=== PATIENT | female | born 1950 | race Caucasian/White ===

== ENCOUNTER 2017-07-07 10:20 | Emergency (ER) | payer OTHER ==
[~2017-07-07] VITALS: Ht 167.6 cm; Wt 93.0 kg
[2017-07-07] MEDS ORDERED: TRAMADOL HCL50 MG PO (10:41)
[2017-07-07] MEDS ORDERED: HYDROXYZINE HCL25 M1 PO (10:42)
[2017-07-07] MEDS ORDERED: METOPROLOL TAR100 M1 PO (10:42)
[2017-07-07] MEDS ORDERED: METFORMIN HCL500 MG PO (10:42)
[2017-07-07] MEDS ORDERED: ROSUVASTATIN CA10 MG PO (10:43)
[2017-07-07] MEDS ORDERED: CITALOPRAM HYDR40 MG PO (10:43)
[2017-07-07 10:53] LABS: BASO % 0.5 % (0.0-1.0); EOS # 0.1 10*3/uL (0.0-0.4); EOS % 0.7 % (1.0-4.0); HEMATOCRIT 31.1 % (37.0-47.0); LYMPH # 1.7 10*3/uL (1.3-4.4); LYMPH % 19.2 % (27.0-41.0); MEAN CELL VOLUME 98.7 fl (81.0-99.0); MEAN CORPUSCULAR HGB 31.7 pg (27.0-31.0); MEAN CORPUSCULAR HGB CONC 32.2 g/dl (33.0-37.0); MEAN PLATELET VOLUME 10.7 fl (9.6-12.3); MONO # 0.5 10*3/uL (0.1-1.0); MONO % 5.8 % (3.0-9.0); NEUT # 6.4 10*3/uL (2.3-7.9); NEUT % 73.6 % (47.0-73.0); PLATELET COUNT AUTOMATED 310 10*3/uL (130-400); RED BLOOD COUNT 3.15 10*6/uL (4.10-5.10); RED CELL DISTRI WIDTH 14.4 % (0-14.5); WHITE BLOOD COUNT 8.6 10*3/uL (4.8-10.8)
[2017-07-07 11:02] LABS: ACT PARTIAL THROMBO TIME 26.4 SECONDS (20.8-31.5)
[2017-07-07 11:06] LABS: ALBUMIN 2.5 gm/dl (3.1-4.5); ALKALINE PHOSPHATASE 110 U/L (45-117); BUN 8 mg/dl (7-24); CHLORIDE 108 mmol/L (98-107); CREATININE 1.02 mg/dL (0.55-1.02); LIPASE 81 U/L (73-393); SGOT/AST 18 IU/L (3-35); SGPT/ALT 18 U/L (12-78); SODIUM 142 mmol/L (136-145); TOTAL PROTEIN 6.6 gm/dL (6.4-8.2)
[2017-07-07 11:50] LABS: BILIRUBIN NEGATIVE (NEGATIVE); BLOOD NEGATIVE (NEGATIVE); CLARITY CLOUDY (CLEAR); COLOR YELLOW (YELLOW); GLUCOSE NEGATIVE (NEGATIVE); KETONE TRACE (NEGATIVE); LEUKO ESTERASE TRACE (NEGATIVE); NITRITE NEGATIVE (NEGATIVE); PH 6.5 (5.0-9.0)
[2017-07-07 12:01] LABS: BACTERIA 3+; EPITHELIAL CELLS 15-20; MUCOUS 2+
== END 2017-07-07 12:25 | disposition home or self-care (01) ==
LOC: ED 10:20
PROVIDERS: Emergency Medicine
DX: R07.89 Other chest pain (principal); G89.29 Other chronic pain; F17.200 Nicotine dependence, unspecified, uncomplicated; Z79.899 Other long term (current) drug therapy

== ENCOUNTER 2018-07-19 05:46 | Inpatient (IN) | payer MEDICARE, OTHER ==
[~2018-07-19] VITALS: Ht 167.6 cm; Wt 84.6 kg
[2018-07-19] VITALS (7 sets, daily range): BP systolic 98–138; BP diastolic 48–93
--- NOTE | ~2018-07-19 | EKG ---
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
--- NOTE | ~2018-07-19 | PR ---
[place], [place] PROGRESS NOTE NAME: DONNA PINO [facility] #: [id number] UNIT #: [id number] ROOM: 512 DOCTOR: BAIRON THEODORE MD BIRTHDATE: [birth year] DOS: 07/20/2018 CARDIOLOGY PROGRESS NOTE SUBJECTIVE: The patient was seen at her bedside today 07/20/2018 for followup of her recently documented atrial fibrillation. She is a 67-year-old woman who presented to the hospital after a fall. She states that she left work, had a few drinks and then went home. As she was preparing dinner, she felt unsteady and as she tried to walk to her living room, she fell. She denies syncope, but stated that she was quite weak before she fell. She is able to crawl to herself and then called emergency medical services the next morning when her legs still hurt. She states that the only thing that she really cares about now is the fact that her leg is very painful. She cannot get any rest. When she did arrive in the Emergency Room, she was found to be in atrial fibrillation, but subsequently converted to sinus rhythm. We were asked to comment on her further evaluation and care. On exam today, her pulse is 66 and regular, blood pressure is 152/70. She is afebrile. She was angry when we walked into the room and not receptive to physical examination. I did review her echocardiogram, which showed normal left ventricular size with mild concentric left ventricular hypertrophy. Systolic function is normal with an ejection fraction of 65%, but she does have stage 2 diastolic dysfunction. She has left atrial enlargement, which appears mild. She does not have any significant valvular disease. I did speak to her at some length about the effects of atrial fibrillation including lightheadedness, weakness and stroke. The patient states that there is a lot of heart disease in her family and that she is not afraid of dying, but was concerned when I told her that more likely than not she would have a stroke from the atrial fibrillation and that would cripple her. At that point, she did agree to discuss anticoagulation and has agreed to take Xarelto upon discharge. She states that her mother was on Coumadin for some time and is familiar with anticoagulation therapies. The patient denies chest pain, but did have an elevated troponin upon admission. Because of this, she probably should undergo a pharmacologic stress test at some time in the near future, but this can wait until after she has been discharged. IMPRESSION: 1. Newly documented atrial fibrillation. 2. Hypertension. 3. Diabetes. 4. Tobacco abuse. PLAN: I would stop all nonsteroidal anti-inflammatory drugs and aspirin and placed her on Xarelto. As noted once she is stabilized and her pain has been relieved, a pharmacologic stress test would be an appropriate next step. [place], [place] PROGRESS NOTE NAME: DONNA PINO UNIT #: [id number] ROOM: 512 DOCTOR: ARBEN ECHEVARRIA,BAIRON BIRTHDATE: [birth year] We thank the hospitalist physicians for asking our advice regarding her care. BAIRON THEODORE MD CM:PNTRANS 1705 BAIRON THEODORE MD 07/21/18224 interface
--- NOTE | ~2018-07-19 | PR ---
[place], [place] PROGRESS NOTE NAME: DONNA PINO [facility] #: [id number] UNIT #: [id number] ROOM: 512 DOCTOR: BAIRON THEODORE MD BIRTHDATE: [birth year] DOS: 07/27/2018 CARDIOLOGY PROGRESS NOTE SUBJECTIVE: The patient was seen at her bedside today 07/27/2018 for followup of paroxysmal atrial fibrillation. She continues to have right leg pain from a fall that she had prior to admission. The bruise got worse when she was started transiently on rivaroxaban. Rivaroxaban has been on hold and her blood counts have been stable since then. The night before last, she did have a recurrent episode of atrial fibrillation without symptoms that resolved spontaneously. PHYSICAL EXAMINATION: VITAL SIGNS: Today, her pulse is 52 and regular, blood pressure is 162/80. She is afebrile. NECK: Supple. She has no jugular distention. Carotids are full. LUNGS: Respirations are unlabored. Her chest is clear to auscultation and percussion. HEART: Has a regular rhythm. She has an S4 gallop. ABDOMEN: Benign. EXTREMITIES: Showed no edema. Echocardiogram done 07/20/2018 showed normal left ventricular size with wall motion and systolic function with ejection fraction 65%. She did have mild concentric left ventricular hypertrophy and stage 2 diastolic relaxation abnormalities. The right heart appeared normal. The left atrium was mildly dilated. The aortic valve leaflets were sclerotic, but opened well. LABORATORY DATA: Hemoglobin today is 9.2. Sodium 142, potassium 3.6, BUN 12, creatinine 0.72. IMPRESSION: 1. Paroxysmal atrial fibrillation. 2. Essential hypertension. 3. Diabetes. 4. Non-morbid obesity. 5. Fall prior to admission with right leg pain. The patient did have hemorrhaging into the contusion when started on rivaroxaban. PLAN: In the long-term, the patient should be on anticoagulation therapy. She has a CHADS-VASc score of 4, which predicts a high risk for cardioembolic events if she is not anticoagulated. I did spend 15-20 minutes with the patient today, explaining this again. When I first discussed this with her, she was very resistant to any consideration that she had a heart problem. At this time, she did listen to me and states that she will come back for followup. Because of her injury, she cannot be anticoagulated at this time, but she will need to be started on a direct oral anticoagulant in the future. I would like her to follow up with us in the office in about 2 weeks after which she can be started on Xarelto 20 mg daily. At the time of this dictation, her medications are diltiazem CD 120 mg daily, pantoprazole 40 mg daily, insulin a.c. and at bedtime by sliding scale, vitamin D 3000 units daily, thiamine 100 mg p.o. daily, [place], [place] PROGRESS NOTE NAME: DONNA PINO UNIT #: [id number] ROOM: 512 DOCTOR: BAIRON THEODORE MD BIRTHDATE: [birth year] multivitamin daily, metoprolol 100 mg b.i.d., folic acid 1 mg daily, citalopram 40 mg daily, Zofran 4 mg q. 6 hours p.r.n., Nicoderm patch and hydroxyzine 50 mg q.6 hours p.r.n. I thank the hospitalist physicians for asking our advice regarding her care. BAIRON THEODORE MD CM:PNTRANS [id number] BAIRON THEODORE MD 07/27/18 1145 interface
--- NOTE | ~2018-07-19 | EKG ---
[place], [place] ELECTROCARDIOGRAM REPORT NAME: DONNA PINO UNIT #: [id number] ROOM: 512 DOCTOR: HARSHA DRAFT REPORT BIRTHDATE: [birth year] [facility] Test Date: 2018-07-19 Test Time: 07:16:02 Pat Name: DONNA PINO Department: Room: 512 Gender: F Check Processor: : 1950 Requested By: ANU ECHOLS Order Number: [id number] Reading MD: Isabel Velazco MD Measurements Intervals [place] Rate: 154 P: SD: QRS: 12 QRSD: 99 T: 155 QT: 305 QTc: 488 Interpretive Statements Atrial flutter with predominant 2:1 AV block LVH with secondary repolarization abnormality Borderline prolonged QT interval No previous ECG available for comparison Electronically Signed On 07-21-2018 12:04:02 PST by Isabel Velazco MD CM:EKGRPT:ELECTROCARDIOGRAM REPORT [id number] 1204 ANU GOMES DRAFT REPORT ANU ECHOLS DO
--- NOTE | ~2018-07-19 | CON ---
[place], [place] REPORT OF CONSULTATION NAME: DONNA PINO UNIT #: [id number] ROOM: 512 DOCTOR: GILLIAN BEAVERS MD BIRTHDATE: [birth year] DOS: 07/19/2018 CARDIOLOGY CONSULTATION REASON FOR CONSULTATION: Atrial fibrillation. CLINICAL HISTORY: The patient is a 67-year-old patient with history of hypertension and diabetes, who presented to Emergency Room for leg pain and "shakiness." She had worked at ____ and then she had some drinks. After that, she noted to be feeling kind of shaky and apparently presented to the hospital because she got weak and also fell in her kitchen and injured her right hip. She denies any chest pain, palpitations. No nausea, vomiting. No bladder or bowel symptoms. No visual symptoms. No neurologic symptoms. REVIEW OF SYSTEMS: Review of the 10 systems negative except as mentioned above. PAST MEDICAL HISTORY: 1. Hypertension. 2. Diabetes. 3. Non-morbid obesity. 4. Acid reflux. PAST SURGICAL HISTORY: History of fundoplication and cataract surgery. ALLERGIES: THE PATIENT IS ALLERGIC TO GENERIC LISINOPRIL. FAMILY HISTORY: Father and mother , cause unknown. HOME MEDICATIONS: Reviewed. Pertinent cardiac medications include metoprolol. PHYSICAL EXAMINATION: VITAL SIGNS: Blood pressure 110/54, pulse 84, respiratory rate 20, weight 84.5 kilos, BMI 30.1. GENERAL: Alert, comfortable, in no acute distress. HEENT: Pupils are round and equal. No jaundice. Tongue was moist and pharynx clear. NECK: Supple, no distended neck veins, no carotid bruit. CHEST: Symmetrical, nontender. LUNGS: Clear to auscultation bilaterally. HEART: Regular rhythm, no S3. ABDOMEN: Obese, nontender. Bowel sounds normal. EXTREMITIES: Showed no edema. Distal pulses palpable. SKIN: Warm and dry. No cyanosis, no clubbing. RECTAL: Deferred. GENITOURINARY: Deferred. NEUROLOGIC: The patient is alert, oriented. No focal neurologic deficit. EKG, RHYTHM STRIPS, LABORATORIES AND IMAGING STUDIES: Reviewed. EKG showed atrial fibrillation and flutter with rapid ventricular rate. Hemoglobin 13 grams, WBC count 6.5 thousand, platelet are 230,000. Potassium 3.6. Normal [place], [place] REPORT OF CONSULTATION NAME: DONNA PINO UNIT #: [id number] ROOM: 512 DOCTOR: RUTHANN ECHEVARRIA,GILLIAN BIRTHDATE: [birth year] ____ function. Troponins are 0.015, 0.18, 0.059. CURRENT MEDICATIONS: Reviewed. IMPRESSION: 1. Atrial fibrillation with rapid ventricular rate, new onset, CHADS2-VASc score of 4. 2. Hypertension. 3. Diabetes type 2. 4. Tobacco abuse. 5. Alcohol use. 6. Right leg pain. 7. Non-morbid obesity. RECOMMENDATIONS: 1. Continue her Lovenox. 2. Check 2D echo for LV function and valvular function. 3. Risk factor modification to quit smoking and drinking was discussed as well as exercise and weight loss. 4. Risks and benefits of oral anticoagulation were discussed and based on her echo findings, we will start her on oral anticoagulation tomorrow. 5. ____ she will need a stress test to rule out ischemia due to her CAD risk factors. 6. There is no family at bedside at the time of my examination. 7. The patient did have borderline elevation of troponins due to her tachycardia and the patient denies any chest pain or shortness of breath. GILLIAN BEAVERS MD CM:CONSTR:REPORT OF CONSULTATION 3091 07/20/18 1436 interface
[~2018-07-19 05:46] MED LIST: CITALOPRAM HYDR40 MG PO; HYDROXYZINE HCL25 M1 PO; METFORMIN HCL500 MG PO; METOPROLOL TAR100 M1 PO; ROSUVASTATIN CA10 MG PO; TRAMADOL HCL50 MG PO
[2018-07-19 06:50] LABS: BASO % 0.3 % (0.0-1.0); EOS # 0.1 10*3/uL (0.0-0.4); EOS % 0.8 % (1.0-4.0); HEMATOCRIT 37.4 % (37.0-47.0); LYMPH # 1.3 10*3/uL (1.3-4.4); LYMPH % 19.3 % (27.0-41.0); MEAN CELL VOLUME 100.8 fl (81.0-99.0); MEAN CORPUSCULAR HGB CONC 34.8 g/dl (33.0-37.0); MEAN PLATELET VOLUME 11.2 fl (9.6-12.3); MONO # 0.7 10*3/uL (0.1-1.0); MONO % 10.2 % (3.0-9.0); NEUT # 4.5 10*3/uL (2.3-7.9); NEUT % 69.1 % (47.0-73.0); PLATELET COUNT AUTOMATED 213 10*3/uL (130-400); RED BLOOD COUNT 3.71 10*6/uL (4.10-5.10); RED CELL DISTRI WIDTH 12.5 % (0-14.5); WHITE BLOOD COUNT 6.5 10*3/uL (4.8-10.8)
[2018-07-19 07:05] LABS: ALBUMIN 3.3 gm/dl (3.1-4.5); ALKALINE PHOSPHATASE 71 U/L (45-117); BUN 9 mg/dl (7-24); CHLORIDE 107 mmol/L (98-107); CREATININE 0.83 mg/dL (0.55-1.02); POTASSIUM 3.6 mmol/L (3.5-5.1); SGOT/AST 18 IU/L (3-35); SGPT/ALT 21 U/L (12-78); SODIUM 142 mmol/L (136-145); TOTAL PROTEIN 6.6 gm/dL (6.4-8.2)
[2018-07-19 07:06] LABS: TROPONIN I < 0.015 ng/ml (<0.045)
[2018-07-19 07:32] LABS: BILIRUBIN NEGATIVE (NEGATIVE); BLOOD NEGATIVE (NEGATIVE); CLARITY SL CLOUDY (CLEAR); COLOR YELLOW (YELLOW); GLUCOSE NEGATIVE (NEGATIVE); KETONE NEGATIVE (NEGATIVE); LEUKO ESTERASE NEGATIVE (NEGATIVE); NITRITE POSITIVE (NEGATIVE); SPECIFIC GRAVITY 1.025 (1.005-1.030); UROBILINOGEN 0.2 E.U./dl (0.2-1.0)
[2018-07-19 07:41] LABS: BACTERIA 4+
--- NOTE | 2018-07-19 07:55 | NUR ---
DR BLANCO NOTIFIED OF PATIENTS BP 108/70. STATES TO CONTINUE WITH THE CARDIZEM BOLUS STILL.
--- NOTE | 2018-07-19 08:00 | NUR ---
PATIENT DENIES ANY WOUNDS A&OX4.
--- NOTE | 2018-07-19 08:25 | NUR ---
A 67, admitted to 5E, under the services of CHARLENE Babcock DO with a diagnosis of UTI, NEW ONSET AFIB WRVR. Chief complaint is PAIN R/T FALL. Patient arrived via ambulance from ER. Monitor applied. Initial assessment completed. Vital signs taken and recorded. CHARLENE BABCOCK DO notified of admission to the unit. Orders received. See assessment for past medical history, medications and allergies. Patient and/or family oriented to unit. [address] visitation policy reviewed. Clothing/patient valuable form completed. SKIN INATCT WITH NO WOUNDS. FLU AND PNEUMONIA VACCINATIONS CURRENT PER PT. REE FONTANEZ
[2018-07-19] MEDS ORDERED: VITAMIN D33000 UNIT PO (08:44)
[2018-07-19] MEDS ORDERED: OMEPRAZOLE40 MG PO (08:45)
[2018-07-19] MEDS ORDERED: VOLTAREN50 M1 PO (08:48)
[2018-07-19] MEDS ORDERED: BENADRYL ALLERG25 M5 PO (09:12)
--- NOTE | 2018-07-19 09:15 | NUR ---
HOME MEDICATIONS VERIFIED. PEREZ NOTIFIED
--- NOTE | 2018-07-19 09:22 | NUR ---
DR. THEODORE'S OFFICE NOTIFIED OF CONSULT.
--- NOTE | 2018-07-19 13:03 | NUR ---
LAB CALLS WITH CRITICAL TROPONIN 0.059. Miquel HARRIS NP CALLED AND NOTIFIED.
[2018-07-20] VITALS: BP 150/55
[2018-07-20 07:34] LABS: BASO % 0.5 % (0.0-1.0); EOS # 0.1 10*3/uL (0.0-0.4); EOS % 1.6 % (1.0-4.0); HEMATOCRIT 32.8 % (37.0-47.0); LYMPH % 22.4 % (27.0-41.0); MEAN CELL VOLUME 103.8 fl (81.0-99.0); MEAN CORPUSCULAR HGB 33.9 pg (27.0-31.0); MEAN CORPUSCULAR HGB CONC 32.6 g/dl (33.0-37.0); MEAN PLATELET VOLUME 12.1 fl (9.6-12.3); MONO # 0.5 10*3/uL (0.1-1.0); MONO % 10.3 % (3.0-9.0); NEUT # 2.8 10*3/uL (2.3-7.9); PLATELET COUNT AUTOMATED 176 10*3/uL (130-400); RED BLOOD COUNT 3.16 10*6/uL (4.10-5.10); RED CELL DISTRI WIDTH 12.8 % (0-14.5); WHITE BLOOD COUNT 4.4 10*3/uL (4.8-10.8)
[2018-07-20 07:39] LABS: HEMOGLOBIN 10.7 g/dl (12.0-16.0)
[2018-07-20 07:57] LABS: ALBUMIN 2.9 gm/dl (3.1-4.5); ALKALINE PHOSPHATASE 66 U/L (45-117); BUN 8 mg/dl (7-24); CHLORIDE 106 mmol/L (98-107); CHOLESTEROL 159 mg/dL (<200); FREE T4 0.81 ng/dl (0.76-1.46); HDL CHOLESTEROL 68 mg/dl (40-60); LDL CHOLESTEROL 57 mg/dL (9-159); PHOSPHOROUS 2.8 mg/dL (2.5-4.9); POTASSIUM 3.6 mmol/L (3.5-5.1); SGOT/AST 14 IU/L (3-35); SGPT/ALT 17 U/L (12-78); SODIUM 140 mmol/L (136-145); TOTAL PROTEIN 6.3 gm/dL (6.4-8.2); TRIGLYCERIDES 170 mg/dl (<150); VLDL CHOLESTEROL 34 mg/dL (6-40)
[2018-07-20 08:00] VITALS: BP 152/70
[2018-07-20 08:43] LABS: VITAMIN D, 25-HYDROXY 30.6 ng/mL (30-100)
--- NOTE | 2018-07-20 11:49 | NUR ---
PT REFUSES TO ANSWER ANY QUESTIONS, STATES I AM A VERY PRIVATE PERSON AND I DON'T KNOW WHY YOU NEED TO KNOW THESE THINGS. WILL CONTINUE TO FOLLOW.
[2018-07-20 12:00] VITALS: BP 120/57
[2018-07-20 16:00] VITALS: BP 112/62
--- NOTE | 2018-07-20 17:20 | NUR ---
PT REFUSED BESIDE GLUCOSE.
[2018-07-20 20:00] VITALS: BP 130/78
--- NOTE | 2018-07-20 20:09 | NUR ---
PATIENT IS RESTING IN BED WITH EASY AND REGULAR RESPERS ON ROOM AIR. ASSESSMENT IS COMPLETE WITH NO C/O OR S/S OF DISTRESS NOTED AT THIS TIME. BED IS LOW, LOCKED, AND CALL LIGHT IS WITHIN REACH. SEE SHIFT ASSESSMENT.
--- NOTE | 2018-07-20 21:30 | NUR ---
2200 MEDICATIONS GIVEN AT THIS TIME, PATIENT TOLERATED WELL. CALL LIGHT IS WITHIN REACH.
[2018-07-21] VITALS: BP 150/62
--- NOTE | 2018-07-21 01:57 | NUR ---
PATIENT IS SLEEPING WITH EASY AND REGULAR RSPERS ON ROOM AIR. CALL LIGHT IS WITHIN REACH.
[2018-07-21 08:00] VITALS: BP 146/48
--- NOTE | 2018-07-21 08:00 | NUR ---
PHYSICAL THERAPY PAtient evaluated on 5, full evaluation to follow. Continue with PT as per plan of care with fall, hostile and aggitated and right LE posterior thigh hematoma precautions. May benefit from ortho consult. May require SNF but will probably refuse. PAtient is high complexity via chart review, tests and evaluation: 55644. Thank you for this referral. Gisselle Montgomery,PT
--- NOTE | 2018-07-21 08:00 | NUR ---
PATIENT RESTING QUIETLY IN BED WITH EYES CLOSED. AROUSES EASILY. RESPIRATIONS EASY, REGULAR ON RA. PT RESISTANT TO ANSWER ANY QUESTIONS PERTAINING TO HER MEDICAL HISTORY AND/OR ALCOHOL USE. VSS. WILL CONTINUE TO MONITOR. CALL LIGHT WITHIN REACH.
[2018-07-21 09:33] LABS: BASO % 0.5 % (0.0-1.0); EOS # 0.1 10*3/uL (0.0-0.4); EOS % 1.4 % (1.0-4.0); HEMATOCRIT 32.9 % (37.0-47.0); HEMOGLOBIN 11.3 g/dl (12.0-16.0); LYMPH # 1.3 10*3/uL (1.3-4.4); LYMPH % 21.7 % (27.0-41.0); MEAN CELL VOLUME 101.2 fl (81.0-99.0); MEAN CORPUSCULAR HGB 34.8 pg (27.0-31.0); MEAN CORPUSCULAR HGB CONC 34.3 g/dl (33.0-37.0); MEAN PLATELET VOLUME 11.7 fl (9.6-12.3); MONO # 0.6 10*3/uL (0.1-1.0); MONO % 10.8 % (3.0-9.0); NEUT # 3.8 10*3/uL (2.3-7.9); NEUT % 65.3 % (47.0-73.0); PLATELET COUNT AUTOMATED 188 10*3/uL (130-400); RED BLOOD COUNT 3.25 10*6/uL (4.10-5.10); RED CELL DISTRI WIDTH 12.4 % (0-14.5); WHITE BLOOD COUNT 5.8 10*3/uL (4.8-10.8)
--- NOTE | 2018-07-21 09:59 | NUR ---
Occupational Therapy evaluation completed on 5 with full eval to follow. Precautions include seizure precautions,high anxiety, RLE pain w/ contusion,fear of movement d/t pain, anger with any questions and patient is resistant to answer any personal questions regarding PLOF. Patient is moderate complexity level [id number] via chart review, testing and evaluation. Recommend OT per POC and SNF upon d/c to enable max functional potential. Thank you for this referral. Ida Rangel OTR/L
--- NOTE | 2018-07-21 11:45 | NUR ---
PT REQUESTED PO MOTRIN PER PRN ORDER FOR C/O HIP AND BACK PAIN. CHRONIC PAIN PER PT. WILL MONITOR EFFECTIVENESS.
[2018-07-21 12:00] VITALS: BP 157/84
--- NOTE | 2018-07-21 13:00 | NUR ---
PAIN BEING RELIEVED PER PT. WILL CONTINUE TO MONITOR.
[2018-07-21 16:00] VITALS: BP 166/64
[2018-07-21 20:00] VITALS: BP 121/62
--- NOTE | 2018-07-21 20:01 | NUR ---
PT RESTING IN BED. C/O BACK PAIN 12/28. PRN MEDS GIVEN. NO ACUTE DISTRESS NOTED. RESPS EASY AND REG. CALL LIGHT IN REACH. WILL CONITUE TO MONITOR.
--- NOTE | 2018-07-21 22:00 | NUR ---
PT REFUSES SLIDING SCALE COVERAGE.
[2018-07-22] VITALS: BP 130/71
--- NOTE | 2018-07-22 01:08 | NUR ---
PT FOUND IN BED WITH GOWN AND CM OFF. DR CHILDERS NOTIFIED OF INCREASED CONFUSION, AGGITATION AND RIGHT LOWER EXT PAIN. CURRENTLY AWAITING ORDERS
--- NOTE | 2018-07-22 06:19 | NUR ---
PT REFUSES BG CHECKED AND SLIDING SCALE COVERAGE AT THIS TIME.
[2018-07-22 08:00] VITALS: BP 100/64
[2018-07-22 08:52] LABS: BASO % 0.3 % (0.0-1.0); HEMATOCRIT 27.4 % (37.0-47.0); HEMOGLOBIN 9.4 g/dl (12.0-16.0); LYMPH # 0.7 10*3/uL (1.3-4.4); LYMPH % 9.5 % (27.0-41.0); MEAN CELL VOLUME 101.5 fl (81.0-99.0); MEAN CORPUSCULAR HGB 34.8 pg (27.0-31.0); MEAN CORPUSCULAR HGB CONC 34.3 g/dl (33.0-37.0); MEAN PLATELET VOLUME 12.8 fl (9.6-12.3); MONO # 0.7 10*3/uL (0.1-1.0); MONO % 8.7 % (3.0-9.0); NEUT # 6.4 10*3/uL (2.3-7.9); NEUT % 81.2 % (47.0-73.0); PLATELET COUNT AUTOMATED 199 10*3/uL (130-400); RED CELL DISTRI WIDTH 12.7 % (0-14.5); WHITE BLOOD COUNT 7.8 10*3/uL (4.8-10.8)
[2018-07-22 09:05] LABS: ALBUMIN 2.9 gm/dl (3.1-4.5); ALKALINE PHOSPHATASE 60 U/L (45-117); BUN 10 mg/dl (7-24); CHLORIDE 102 mmol/L (98-107); CREATININE 0.92 mg/dL (0.55-1.02); POTASSIUM 3.8 mmol/L (3.5-5.1); SGOT/AST 17 IU/L (3-35); SGPT/ALT 16 U/L (12-78); SODIUM 138 mmol/L (136-145); TOTAL PROTEIN 6.6 gm/dL (6.4-8.2)
--- NOTE | 2018-07-22 09:45 | NUR ---
OT NOTE Pt was seen this A.M. 1:1 for 15 minute OT session. Upon arrival pt was supine in bed, pt identified by name and . Pt presented to therapy with complaints of increased generalized weakness, fatigue, and pt's speech was mumbled leaving her hard to understand. Pt transferred supine to sit EOB with Cruz for assist with UB. Donned socks with maxA. Upon intial rise to the EOB pt had complaints of increased weakness and dizziness resulting in her laying back down. Pt then completed second supine to sit with Cruz followed by sit to stand with Cruz X 2 and use of w/w for UE support. Pt tolerated static standing tolerance for aprox 49 seconds before requesting to sit due to fatigue. Pt transferred back to bed and was repositioned in bed with maxA X 2. Throughout session pt required constant verbal prompts for attention to task, following commands, and participation. Pt was left supine in bed with call light in hand, tray table in place, and bed alarm activated for safety. Continue with rec D/C plan to SNF. REINIER Valadez/Jaki
--- NOTE | 2018-07-22 10:01 | NUR ---
PHYSICAL THERAPY Patient seen this am 1:1 for therapy visit and was resting supine in bed upon therapist arrival. Patient presented with increased lethargic behaviour, stating she just doesn't feel well with c/o of generalized, global weakness. Patient transfers supine to sit EOB with MIN A, tolerating < 1 minute static sit before c/o of feeling light headed. Patient performed several transfer trials with HR 87 bpm as Evelyn physician physician assistant certified arrived. Patient also performed single sit to stand transfer Min A x 2, use of std walker standing support as requested so Posterior R LE Hematoma could be checked. Patient again stated she did not feel well and needed to return to supine in bed. Patient repositioned to [facility] and remained with call light, tray table, side bed rails raised and bed alarm activated for safety. Will continue per POC as tolerated, total treatment time 13 minutes. Davie Mcclellan, IT HELP DESK ASSOCIATE
--- NOTE | 2018-07-22 11:30 | NUR ---
PT REFUSED BSG AT THIS TIME. CALL LIGHT IN REACH. WILL MONITOR
[2018-07-22 12:00] VITALS: BP 104/60
[2018-07-22 16:00] VITALS: BP 90/38; BP 98/48
--- NOTE | 2018-07-22 16:30 | NUR ---
PT REFUSED BSG CHECK AT THIS TIME. CALL LIGHT IN REACH. WILL MONITOR
[2018-07-22 20:00] VITALS: BP 102/52
--- NOTE | 2018-07-22 20:10 | NUR ---
PATIENT GIVEN MOTRIN FOR ALL OVER BAODY ACHES AND VISTARIL FOR ANXIETY. WILL MONITOR.
--- NOTE | 2018-07-22 21:07 | NUR ---
INSTRUCTED ON THE IMPORTANCE OF CHECKING BLOOD SUGAR AND INSULIN PATIENT JAKOB TO LET ME CHACK HER SUGAR TONIGHT.
[2018-07-23] VITALS (7 sets, daily range): BP systolic 92–136; BP diastolic 48–82
--- NOTE | 2018-07-23 06:21 | NUR ---
PATIENT REFUSED TO HAVE BLOOD SUGAR CHECKED THIS MORNING SAID SHE JUST WANTED TO SLEEP BECUASE SHE HAS NOT ALL NIGHT. PATIENT HAS BEEN LYING IN BED WITH EYES CLOSED ALL NIGHT WITH NO COMPLAINTS.
[2018-07-23 07:07] LABS: BASO % 0.1 % (0.0-1.0); EOS % 0.1 % (1.0-4.0); HEMATOCRIT 21.5 % (37.0-47.0); LYMPH # 1.1 10*3/uL (1.3-4.4); LYMPH % 15.8 % (27.0-41.0); MEAN CELL VOLUME 103.9 fl (81.0-99.0); MEAN CORPUSCULAR HGB 34.8 pg (27.0-31.0); MEAN CORPUSCULAR HGB CONC 33.5 g/dl (33.0-37.0); MEAN PLATELET VOLUME 12.9 fl (9.6-12.3); MONO # 0.9 10*3/uL (0.1-1.0); MONO % 11.9 % (3.0-9.0); NEUT # 5.2 10*3/uL (2.3-7.9); NEUT % 71.7 % (47.0-73.0); PLATELET COUNT AUTOMATED 202 10*3/uL (130-400); RED BLOOD COUNT 2.07 10*6/uL (4.10-5.10); RED CELL DISTRI WIDTH 13.2 % (0-14.5); WHITE BLOOD COUNT 7.2 10*3/uL (4.8-10.8)
[2018-07-23 07:08] LABS: HEMOGLOBIN 7.2 g/dl (12.0-16.0)
[2018-07-23 07:23] LABS: POTASSIUM 4.3 mmol/L (3.5-5.1)
[2018-07-23 07:35] LABS: ALBUMIN 2.8 gm/dl (3.1-4.5); CREATININE 1.27 mg/dL (0.55-1.02); TOTAL PROTEIN 6.2 gm/dL (6.4-8.2)
--- NOTE | 2018-07-23 08:25 | NUR ---
OT NOTE Pt was seen this A.M. 1:1 for 15 minute OT session. Upon arrival pt was supine in bed, pt identified by name and . Pt had reports of increased pain however would not rate on 0-10 pain scale and had increased aggitation with questions. Pt transferred supine to sit EOB with modA for assist with UB. Pt had complaints of feeling dizzy, educated pt on visual fixation technique. Pt would not follow commands. Multiple sit to stand transfers completed from bed level with Cruz and use of w/w for UE support. Challenged pt's static standing tolerance needed for increased I in self care tasks and functional transfers, pt tolerated aprox 45 seconds and 60 seconds before sitting due to fatigue and pain. Pt transferred back into bed sit to supine with Cruz and was repositioned in bed with maxA X 2. Pt was left supine in bed with call light in hand, tray table in place, and bed alarm activated for safety. Continue with rec D/C plan to SNF. REINIER Valadez/Jaki
--- NOTE | 2018-07-23 08:45 | NUR ---
PHYSICAL THERAPY Patient seen this am 1:1 for therapy visit and was supine in bed upon therapist arrival. Patient reports increased pain this morning but unable to communicate its origin. Patient easilty becomes agitated when questioned and needed MAX encouragement to complete all therapy task this session. Patient transfers supine to sit EOB Mod A and sit to stand Min A with use of wh walker standing support. Patient able to take 4-5 steps fwd / bkwd, plus side step to R 2-3 steps prior to quick onset of fatigue with c/o dizziness. Patient tolerated 2 standing trials then returned to supine in bed with HOB elevated as breakfast arrived. Patient remained with call light, tray table and bed alarm activated. Will cotinue per POC as tolerated, total treatment time 14 minutes. Davie Mcclellan, GARNETT FEEDER
[2018-07-23 10:07] LABS: HEMATOCRIT 22.4 % (37.0-47.0); HEMOGLOBIN 7.7 g/dl (12.0-16.0)
--- NOTE | 2018-07-23 10:32 | NUR ---
ATTEMPTED TO TALK TO PT ABOUT SKILLED FACILITIES ON DISCHARGE FOR THERAPY, PT BECAME IRATE AND STATES I CAN'T TELL YOU THAT RIGHT NOW, I NEED TO THINK ABOUT IT. WILL CONTINUE TO FOLLOW.
--- NOTE | 2018-07-23 14:55 | NUR ---
Informed consent obtained from patient for Blood transfussion by Dr. PRYOR. Patient identified by arm band. Vital signs recorded. Blood unit number verified by 2 R.N.'s. I.V. site satisfactory. Unit 1 started at a KVO rate with Normal Saline. ALEXANDER PRITCHETT
--- NOTE | 2018-07-23 17:50 | NUR ---
BLOOD TRANSFUSION COMPLETE. NO ADVERSE REACTIONS NOTED. VSS. WILL MONITOR
--- NOTE | 2018-07-23 20:13 | NUR ---
24 HR chart check completed.
--- NOTE | 2018-07-23 21:00 | NUR ---
RESTING WITH EYES CLOSED. RESPIRATIONS EASY. LUNGS DIMINISHED, CLEAR. PULSE OX 95% RA. RIGHT POSTERIOR LEG REMAINS ECCHYMOTIC, DENIES PAIN. IV FLUIDS INFUSING PER ORDER. CALL LIGHT WITHIN REACH. NO VOICED COMPLAINTS. BED ALARM MAINTAINED FOR SAFETY
--- NOTE | 2018-07-23 22:10 | NUR ---
REQUESTED AND RECEIVED TRAZADONE AND VISTARIL PER PRN ORDER TO ASSIST WITH ANXIETY AND SLEEP. CALL LIGHT WITHIN REACH. WILL MONITOR FOR EFFECTIVENESS
[2018-07-24] VITALS: BP 102/50; BP 91/50
--- NOTE | 2018-07-24 | NUR ---
EARLIER MEDS APPEAR EFFECTIVE. SLEEPING. RESPIRATIONS EASY. VSS. IV FLUIDS MAINTAINED. CALL LIGHT WITHIN REACH. BED ALARM MAINTAINED FOR SAFETY
--- NOTE | 2018-07-24 06:35 | NUR ---
SLEPT THROUGHOUT NIGHT WITH NO DISTRESS NOTED. MEDICATED WITH VISTARIL PER PRN ORDER TO ASSIST WITH ANXIETY. CALL LIGHT WITHIN REACH. WILL MONITOR FOR EFFECTIVENESS
[2018-07-24 08:00] VITALS: BP 120/50
[2018-07-24 08:32] LABS: BASO % 0.2 % (0.0-1.0); EOS % 0.7 % (1.0-4.0); HEMATOCRIT 23.7 % (37.0-47.0); HEMOGLOBIN 7.8 g/dl (12.0-16.0); LYMPH # 1.4 10*3/uL (1.3-4.4); LYMPH % 23.2 % (27.0-41.0); MEAN CELL VOLUME 100.4 fl (81.0-99.0); MEAN CORPUSCULAR HGB 33.1 pg (27.0-31.0); MEAN CORPUSCULAR HGB CONC 32.9 g/dl (33.0-37.0); MONO # 0.7 10*3/uL (0.1-1.0); MONO % 11.4 % (3.0-9.0); NEUT # 3.9 10*3/uL (2.3-7.9); PLATELET COUNT AUTOMATED 192 10*3/uL (130-400); RED BLOOD COUNT 2.36 10*6/uL (4.10-5.10); RED CELL DISTRI WIDTH 15.2 % (0-14.5); WHITE BLOOD COUNT 6.1 10*3/uL (4.8-10.8)
[2018-07-24 08:42] LABS: ALBUMIN 2.8 gm/dl (3.1-4.5); ALKALINE PHOSPHATASE 48 U/L (45-117); BUN 14 mg/dl (7-24); CHLORIDE 110 mmol/L (98-107); CREATININE 0.77 mg/dL (0.55-1.02); POTASSIUM 3.7 mmol/L (3.5-5.1); SGOT/AST 13 IU/L (3-35); SGPT/ALT 15 U/L (12-78); SODIUM 142 mmol/L (136-145); TOTAL PROTEIN 5.9 gm/dL (6.4-8.2)
--- NOTE | 2018-07-24 08:56 | NUR ---
MEDICATED WITH TYLENOL PER PRN ORDER FOR COMPLAINTS OF RIGHT LEG/HIP/BACK PAIN. WILL MONITOR FOR EFFECTIVENESS.
--- NOTE | 2018-07-24 09:55 | NUR ---
PHYSICAL THERAPY Patient seen this am 1:1 for therapy visit and was supine in bed upon theapist arrival. Patient voices R posterior leg / buttock pain due to large contusion from recent fall and transfers supine to sit EOB with Min/Mod A. Patient needed a minute to collect herself secondary to mild c/o dizziness. Patient performed sit to stand transfer, MIN A and ambulated with use of wh walker, 40'x 1, demonstrating very slow, unsteady gait pattern prior to returning to supine in bed. Patient remained with call light, tray table, telephone and bed alarm for safety. Will continue per POC as tolerated, total treatment time 13 minutes. Davie Mcclellan, CREDIT PROFESSIONAL
--- NOTE | 2018-07-24 10:07 | NUR ---
OT NOTE Pt was seen this A.M. 1:1 for 15 minute OT session. Upon arrival pt was supine in bed, pt identified by name and . Pt had complaints of pain in her R leg which she wouldnt rate on 0-10 scale and presented being very aggitated. Pt transferred supine to sit EOB with modA for assist with UB. While sitting EOB pt donned L sock with set-upA and R sock with modA due to being unable to bring over her other knee. Pt then completed functional mobility around the room with Cruz and use of w/w. Throughout pt required verbal prompts for enhanced walker safety due to having LOB with turns and having poor walker navigation. Pt returned supine in bed with modA and was repositioned with maxA X 2. Pt ws left supine in bed with call light in hand, tray table in place, and bed alarm activated for safety. Continue with rec D/C plan SNF. REINIER Valadez/Jaki
--- NOTE | 2018-07-24 10:30 | NUR ---
PT STATES EARLIER TYLENOL NOT EFFECTIVE, STATING IT IS RIDICULOUS THAT SHE DOESN'T HAVE ANYTHING STRONGER FOR PAIN, INFORMED PEREZ. NEW ORDERS RECEIVED.
--- NOTE | 2018-07-24 11:00 | NUR ---
ATTEMPTED TO TALK TO PT ABOUT GOING TO A SKILLED FACILITY FOR PHYSICAL THERAPY BUT PT STILL NOT WILLING TO TALK ABOUT IT. EXPLIANED IT WOULD ONLY BE A COUPLE OF WEEKS BUT SHE YELLS I CAN'T GO THAT LONG AND REFUSED TO TALKE TO ME ANY LONGER.
--- NOTE | 2018-07-24 11:07 | NUR ---
MEDICATED WITH NORCO PER PRN ORDER FOR COMPLAINTS OF RIGHT LEG PAIN, RATES PAIN 5/10. WILL MONITOR FOR EFFECTIVENESS.
[2018-07-24 12:00] VITALS: BP 102/50
--- NOTE | 2018-07-24 13:49 | NUR ---
PT STATES NORCO WAS EFFECTIVE, RESTING MORE COMFORTABLY.
--- NOTE | 2018-07-24 15:05 | NUR ---
OCCUPATIONAL THERAPY CO-SIGN I approve of the Occupational Therapy notes written above. ROSANNE MARTINEZ OTR/Jaki
[2018-07-24 16:00] VITALS: BP 110/50
--- NOTE | 2018-07-24 18:42 | NUR ---
PT PULLED IV OUT, NEW IV ESTABLISHED IN LEFT ARM #22G.
[2018-07-24 19:02] LABS: HEMATOCRIT 21.8 % (37.0-47.0); HEMOGLOBIN 7.3 g/dl (12.0-16.0)
--- NOTE | 2018-07-24 19:57 | NUR ---
PATIENT IS AAOX3 RESTING IN BED WITH EASY AND REGULAR RESPERS ON ROOM AIR. ASSESSMENT IS COMPLETE WITH NO S/S OF DISTRESS NOTED. PATIENT C/O RIGHT LEG/HIP PAIN RATING A 8/10. MEDICATED WITH PRN NORCO ORDERED AND PATIENT TOLERATED WELL. PATIENT ALSO REFUSED BSG CHECK. BED IS LOW, LOCKED, ALARMED, AND CALL LIGHT IS WITHIN REACH. SEE SHIFT ASSESSMENT.
[2018-07-24 20:00] VITALS: BP 114/64
--- NOTE | 2018-07-24 20:19 | NUR ---
SPOKE WITH DR. CROWDER REGARDING PASS ON FROM PREVIOUS NURSE TO CONTACT WITH RESULTS OF RECENT H&H, THEY ARE AWARE.
--- NOTE | 2018-07-24 22:03 | NUR ---
2200 MEDICATIONS GIVEN AT THIS TIME, PATIENT TOLERATED WELL. CALL LIGHT IS WITHIN REACH.
--- NOTE | 2018-07-24 22:06 | NUR ---
PRN VISTARIL GIVEN AT THIS TIME FOR INCREASED ANXIETY AND AGITATION. PATIENT TOLERATED WELL, CALL LIGHT IS WITHIN REACH.
--- NOTE | 2018-07-24 22:25 | NUR ---
CONTACTED DR. CROWDER REGARDING PATIENT REQUESTING BIOFREEZE FOR RIGHT LEG.
--- NOTE | 2018-07-24 23:37 | NUR ---
PRN ATIVAN GIVEN AT THIS TIME FOR INCREASED ANXIETY AND AGITATION, PATIENT TOLERATED WELL. CALL LIGHT IS WITHIN WILL MONITOR EFFECT.
[2018-07-25] VITALS (10 sets, daily range): BP systolic 100–122; BP diastolic 45–84
--- NOTE | 2018-07-25 | NUR ---
Informed consent obtained from patient for Blood transfussion Patient identified by arm band. Vital signs recorded. Blood unit number verified by 2 R.N.'s. I.V. site satisfactory. Unit 1 started at a KVO rate with Normal Saline. TATO SAHA
--- NOTE | 2018-07-25 01:30 | NUR ---
BLOOD TRANSFUSSION COMPLETE, PATIENT TOLERATED WELL. NO REACTIONS NOTED AT THIS TIME. CALL LIGHT IS WITHIN REACH.
[2018-07-25 07:10] LABS: BASO % 0.5 % (0.0-1.0); EOS # 0.1 10*3/uL (0.0-0.4); EOS % 2.7 % (1.0-4.0); HEMATOCRIT 25.6 % (37.0-47.0); HEMOGLOBIN 8.3 g/dl (12.0-16.0); LYMPH # 0.9 10*3/uL (1.3-4.4); LYMPH % 20.6 % (27.0-41.0); MEAN CELL VOLUME 99.6 fl (81.0-99.0); MEAN CORPUSCULAR HGB 32.3 pg (27.0-31.0); MEAN CORPUSCULAR HGB CONC 32.4 g/dl (33.0-37.0); MEAN PLATELET VOLUME 11.8 fl (9.6-12.3); MONO # 0.5 10*3/uL (0.1-1.0); MONO % 11.6 % (3.0-9.0); NEUT # 2.8 10*3/uL (2.3-7.9); NEUT % 64.1 % (47.0-73.0); PLATELET COUNT AUTOMATED 186 10*3/uL (130-400); RED BLOOD COUNT 2.57 10*6/uL (4.10-5.10); RED CELL DISTRI WIDTH 14.6 % (0-14.5); WHITE BLOOD COUNT 4.4 10*3/uL (4.8-10.8)
--- NOTE | 2018-07-25 07:23 | NUR ---
MEDICATED WITH NORCO AT THIS TIME FOR COMPLAINTS OF SEVERE RIGHT LEG AND BACK PAIN. WILL MONITOR FOR EFFECTIVENESS.
[2018-07-25 07:34] LABS: ALBUMIN 2.8 gm/dl (3.1-4.5); ALKALINE PHOSPHATASE 49 U/L (45-117); BUN 12 mg/dl (7-24); CHLORIDE 107 mmol/L (98-107); CREATININE 0.72 mg/dL (0.55-1.02); POTASSIUM 3.6 mmol/L (3.5-5.1); SGOT/AST 10 IU/L (3-35); SGPT/ALT 16 U/L (12-78); SODIUM 142 mmol/L (136-145); TOTAL PROTEIN 5.7 gm/dL (6.4-8.2)
--- NOTE | 2018-07-25 08:30 | NUR ---
PT RESTING COMFORTABLY, EARLIER NORCO APPEARS EFFECTIVE.
--- NOTE | 2018-07-25 11:21 | NUR ---
PT UP IN CHAIR, COMPLAINING OF LEG AND BACK PAIN, PT RATES PAIN 9/10. MEDICATED WITH TYLENOL PER PRN ORDER. WILL MONITOR FOR EFFECTIVENESS.
--- NOTE | 2018-07-25 13:00 | NUR ---
PT RESTING SOMEWHAT MORE COMFORTABLE. EARLIER TYLENOL APPEARS EFFECTIVE.
--- NOTE | 2018-07-25 17:06 | NUR ---
PT ASSISTED UP TO CHAIR AT THIS TIME, MEDICATED WITH NORCO PER PRN ORDER FOR COMPLAINTS OF LEG PAIN, RATES PAIN 03/30. WILL MONITOR FOR EFFECTIVENESS.
--- NOTE | 2018-07-25 18:13 | NUR ---
PT'S HR FOUND TO BE IN 130'S ON CLINICAL DOCUMENTATION CLERK. EKG ORDERED- PT CONVERTED BACK INTO AFIB. PT ASYMPTOMATIC. DR THEODORE INFORMED, PT'S HR RANGING FROM 100-120'S CURRENTLY. NEW ORDERS RECEIVED.
--- NOTE | 2018-07-25 18:15 | NUR ---
DR ALCAZAR UPDATED ON PT'S CURRENT STATUS AND NEW ORDERS RECEIVED FROM DR THEODORE.
[2018-07-26] VITALS (7 sets, daily range): BP systolic 96–124; BP diastolic 50–72
--- NOTE | 2018-07-26 00:49 | NUR ---
Requested and medicated with [place] at 2210 for leg and hip pain rated a 6/10 with minimal relief later voiced. Will continue to monitor.
--- NOTE | 2018-07-26 03:21 | NUR ---
Trazodone given at o154 to aid sleep[address] Dr[address] Smith called with orders received. Morphine given at 0207 for complaints of R leg and hip pained rated a 6/10. Trazodone and Morphine effective to decrease pain and allow to rest quietly. Resp easy and regular. Will continue to monitor.
[2018-07-26 06:38] LABS: BASO % 0.5 % (0.0-1.0); EOS # 0.2 10*3/uL (0.0-0.4); HEMATOCRIT 26.9 % (37.0-47.0); HEMOGLOBIN 8.8 g/dl (12.0-16.0); LYMPH # 0.8 10*3/uL (1.3-4.4); LYMPH % 20.5 % (27.0-41.0); MEAN CELL VOLUME 101.1 fl (81.0-99.0); MEAN CORPUSCULAR HGB 33.1 pg (27.0-31.0); MEAN CORPUSCULAR HGB CONC 32.7 g/dl (33.0-37.0); MEAN PLATELET VOLUME 12.4 fl (9.6-12.3); MONO # 0.5 10*3/uL (0.1-1.0); MONO % 12.3 % (3.0-9.0); NEUT # 2.5 10*3/uL (2.3-7.9); PLATELET COUNT AUTOMATED 229 10*3/uL (130-400); RED BLOOD COUNT 2.66 10*6/uL (4.10-5.10); RED CELL DISTRI WIDTH 14.7 % (0-14.5); WHITE BLOOD COUNT 4.1 10*3/uL (4.8-10.8)
--- NOTE | 2018-07-26 10:38 | NUR ---
PAIN MEDICATION EFFECTIVE.
--- NOTE | 2018-07-26 12:40 | NUR ---
PATIENT'S HEART RATE 55, CARDIZEM HELD.
--- NOTE | 2018-07-26 17:06 | NUR ---
FOUND PILL IN PATIENT'S BED, SHE STATES IT WAS "FOR HER DOG" BUT COULD NOT EXPLAIN EXACTLY WHAT THE MEDICATION WAS FOR, AND THE PATIENT PROCEEDED TO SNATCH IT FROM MY HAND. SHE PLACED THE PILL IN ONE OF HER PILL BOTTLES IN HER PURSE. THE PATIENT THEN STARTED ACTING EXTREMELY DEFENSIVE AND AGGRESSIVE, DISPLAYING A BAD ATTITUDE... AT ONE POINT YANKING HER HAND AWAY FROM THIS NURSE DURING ADMINISTRATION OF IV PROTONIX AND STARTED MUMBLING RUDE COMMENTS TOWARD THIS NURSE. THIS NURSE RESPONDED TO THE PATIENT THAT I DID NOT APPRECIATE HER ATTITUDE AND THAT I WOULD APPRECIATE IT IF SHE WOULD STOP MAKING COMMENTS, THAT I WAS JUST TRYING TO FINISH ADMINISTERING HER MEDICATIONS, AND ONCE I WAS FINISHED I WOULD LEAVE HER ALONE. PATIENT CONTINUED TO MAKE RUDE COMMENTS, AND THIS NURSE DECIDED TO REMOVE HERSELF FROM THE SITUATION BEFORE THE PATIENT BECAME MORE UPSET. I WALKED FROM THE ROOM. PATIENT WAS SITTING ON HER BED, CALL LIGHT WITHIN REACH. SHE DISPLAYED NO S/S OF DISTRESS. THE PATIENT HAS BEEN DISPLAYING SOME DROWSINESS THROUGHTOUT THE DAY INTERMITTENTLY, HOWEVER. DR ALCAZAR WAS CALLED AND NOTIFIED OF THE SITUATION.
--- NOTE | 2018-07-26 18:04 | NUR ---
PATIENT'S HEART RATE 65.
[2018-07-27] VITALS: BP 124/43
--- NOTE | 2018-07-27 01:38 | NUR ---
Requested and medicated with [place] at 1941 for complaints of hip, back, and leg pain rated as a 10/10 with relief later voiced. Requested and medicated with [place] at 0130 for complaints of hip and leg pain rated a 10/10. Requested and medicated with Trazodone at 0134 to aid sleep. Will monitor effectiveness. 0000 Tico held HR 50's-low 60's.
--- NOTE | 2018-07-27 04:11 | NUR ---
Sheri recieved at 0130 ineffective to reduce pain. Called to room, stating loudly, I'm in so much pain I just want to . I can't get comfortable. Told pt she had pain meds less than 2 hours ago. Pt questioned why everyone thought she was lying, her pain is real. Resting in bed, difficult time keeping eyes open, slurring speech, denies taking anything, states, its because of how much pain I'm in. Visteral given to decrease anxiety at 0330. Visteral effective to decrease anxiety. Resting quietly in bed, no s/s of pain noted. Resp easy and regular.
--- NOTE | 2018-07-27 07:30 | NUR ---
ASSUMED CARE OF THIS PATIENT AT THIS TIME. RECEIVED REPORT FROM NOEL Segundo RN. PATIENT AWAKE IN HER BED, SEEMS DROWSY. NO S/S OF DISTRESS. CALL LIGHT WITHIN REACH.
[2018-07-27 08:25] LABS: BASO % 0.4 % (0.0-1.0); EOS # 0.3 10*3/uL (0.0-0.4); EOS % 4.9 % (1.0-4.0); HEMATOCRIT 27.7 % (37.0-47.0); HEMOGLOBIN 9.2 g/dl (12.0-16.0); LYMPH # 0.9 10*3/uL (1.3-4.4); LYMPH % 18.2 % (27.0-41.0); MEAN CELL VOLUME 103.4 fl (81.0-99.0); MEAN CORPUSCULAR HGB 34.3 pg (27.0-31.0); MEAN CORPUSCULAR HGB CONC 33.2 g/dl (33.0-37.0); MEAN PLATELET VOLUME 11.4 fl (9.6-12.3); MONO # 0.7 10*3/uL (0.1-1.0); MONO % 13.2 % (3.0-9.0); NEUT # 3.2 10*3/uL (2.3-7.9); NEUT % 62.9 % (47.0-73.0); PLATELET COUNT AUTOMATED 241 10*3/uL (130-400); RED BLOOD COUNT 2.68 10*6/uL (4.10-5.10); RED CELL DISTRI WIDTH 14.6 % (0-14.5); WHITE BLOOD COUNT 5.1 10*3/uL (4.8-10.8)
[2018-07-27 08:54] VITALS: BP 162/70; BP 162/80
--- NOTE | 2018-07-27 09:40 | NUR ---
OT NOTE Pt was seen this A.M. 1:1 for 15 minute OT session. Upon arrival pt was supine in bed, pt identified by name and . Pt had reports of 7/10 pain her R leg, back, and hips. Pt transferred supine to sit EOB with SBA. While sitting EOB pt donned socks with supervision. Attempted to educate pt on personal adaptive techniques and she became very aggitated and "wanted to do it her way". Pt completed functional mobility around the room to the bathroom and back with CGA and use of w/w for UE support. Pt required min education/verbal prompts due to poor safety awareness while letting go of walker and staying outside the walker. Challenged pt's static standing tolerance needed for increased I in self care tasks and functional transfers and pt was able to tolerate aprox 2-3 minutes before sitting due to fatigue and legs feeling like "rubber." Pt returned supine in bed with SBA, there she was left with call light in hand, tray table in place, and bed alarm activated for safety. Continue with rec D/C plan to SNF. REINIER Valadez/Jaki
--- NOTE | 2018-07-27 09:50 | NUR ---
PHYSICAL THERAPY Patient seen this am 1:1 for therapy visit and was supine in bed upon therapist arrival. Patient reports slight decrease in R LE pain, 5/10 this moring and was very talkative / mostly pleasant this session. Patient transfers supine to sit EOB with CGA/Min, tolerating static EOB sit x several minutes to collect herself because she does not like to be rushed. Patient ambulates with use of wh walker, 70'x 1, CGA, while demonstrating very slow, cautious gait pattern. Patient also demonstrates increased forward lean due to quick onset of fatigue and requires standing rest break < 20 seconds to complete all gait this session. Patient returned to EOB before transfering back to supine in bed and remained with call light, tray table, cell phone and bed alarm activated for safety. Will continue per POC as tolerated, total treatment time 15 minutes. Davie Mcclellan, CUBE MACHINE TENDER
--- NOTE | 2018-07-27 09:57 | NUR ---
PATIENT RECEIVED TYLENOL FOR PAIN IN LEG RATED 5/10.
[2018-07-27] MEDS ORDERED: CARDIZEM CD120 M2 PO (11:04)
--- NOTE | 2018-07-27 11:15 | NUR ---
Patient requested cab ride home, she has no other way to get home and no money to pay for a cab. Contacted [facility] who will transport patient home at noon.
--- NOTE | 2018-07-27 11:42 | NUR ---
PATIENT'S HEART RATE 58 PER CM.
--- NOTE | 2018-07-27 11:50 | NUR ---
CALLED [facility] ABOUT WHEELED WALKER THEY ARE UNABLE TO DELIVER TODAY.
[2018-07-27 12:00] VITALS: BP 130/66
--- NOTE | 2018-07-27 12:00 | NUR ---
NICKED WALKER SCRIP SENT TO [facility]. WAITING TO HEAR BACK FROM THEM IF THEY CAN DELIVER TODAY.
--- NOTE | 2018-07-27 12:46 | NUR ---
REFERRAL SENT TO [facility].
[2018-07-27] MEDS ORDERED: CEFUROXIME AXE250 MG PO (14:38)
[2018-07-27 16:00] VITALS: BP 141/81
--- NOTE | 2018-07-27 18:51 | NUR ---
Discharge instructions reviewed with patient/family. Patient receptive and verbalizes understanding. Follow-up care arranged. Written instructions given to patient/family. PATIENT TAKEN FROM FLOOR VIA WHEELCHAIR BY NURSE, NO S/S OF DISTRESS KIA JORDAN
--- NOTE | 2018-07-28 07:54 | NUR ---
OCCUPATIONAL THERAPY CO-SIGN I approve of the Occupational Therapy notes written above. ROSANNE MARTINEZ OTR/Jaki
--- NOTE | 2018-07-28 08:07 | NUR ---
PHYSICAL THERAPY CO-SIGN I approve of the Phyical Therapy notes written above. CANDI CERDA PT
== END 2018-07-27 18:51 | disposition home health service (06) | DRG 309 ==
LOC: ED 05:46 → EDHOLD 07:53 → 5E 07:53
PROVIDERS: Emergency Medicine; Registered Nurse; Student in an Organized Health Care Education/Training Program; ADMIT Internal Medicine
PROC: 30233N1 Transfusion of Nonautologous Red Blood Cells into Peripheral Vein, Percutaneous Approach (ICD-10-PCS; principal; 2018-07-23)
DX: I48.91 Unspecified atrial fibrillation (principal); D62 Acute posthemorrhagic anemia; N39.0 Urinary tract infection, site not specified; E44.0 Moderate protein-calorie malnutrition; Z79.01 Long term (current) use of anticoagulants; I10 Essential (primary) hypertension; F32.9 Major depressive disorder, single episode, unspecified; Z88.9 Allergy status to unspecified drugs, medicaments and biological substances; F41.1 Generalized anxiety disorder; K21.9 Gastro-esophageal reflux disease without esophagitis; E66.9 Obesity, unspecified; F17.200 Nicotine dependence, unspecified, uncomplicated; G89.29 Other chronic pain; R07.9 Chest pain, unspecified; E11.36 Type 2 diabetes mellitus with diabetic cataract; Z79.4 Long term (current) use of insulin; Z83.6 Family history of other diseases of the respiratory system; Z82.49 Family history of ischemic heart disease and other diseases of the circulatory system; Z83.3 Family history of diabetes mellitus; Z78.9 Other specified health status; Z68.30 Body mass index [BMI] 30.0-30.9, adult

== ENCOUNTER 2021-03-02 11:30 | Inpatient (IN) | payer MEDICARE, MEDICAID ==
[2021-03-02] VITALS (8 sets, daily range): BP systolic 119–136; BP diastolic 50–78
[~2021-03-02] VITALS: Ht 170.1 cm; Wt 63.6 kg
[~2021-03-02 11:30] MED LIST changes: +BENADRYL ALLERG25 M5 PO; +CARDIZEM CD120 M2 PO; +CEFUROXIME AXE250 MG PO; +OMEPRAZOLE40 MG PO; +VITAMIN D33000 UNIT PO; +VOLTAREN50 M1 PO
[2021-03-02 12:03] LABS: BASO % 0.3 % (0.0-1.0); EOS % 0.1 % (1.0-4.0); LYMPH # 0.7 10*3/uL (1.3-4.4); LYMPH % 6.3 % (27.0-41.0); MEAN CELL VOLUME 93.9 fl (81.0-99.0); MEAN CORPUSCULAR HGB 33.7 pg (27.0-31.0); MEAN CORPUSCULAR HGB CONC 35.9 g/dl (33.0-37.0); MEAN PLATELET VOLUME 11.8 fl (9.6-12.3); MONO # 0.8 10*3/uL (0.1-1.0); MONO % 7.6 % (3.0-9.0); NEUT # 8.9 10*3/uL (2.3-7.9); NEUT % 85.2 % (47.0-73.0); PLATELET COUNT AUTOMATED 274 10*3/uL (130-400); RED BLOOD COUNT 3.62 10*6/uL (4.10-5.10); RED CELL DISTRI WIDTH 13.4 % (0-14.5); WHITE BLOOD COUNT 10.4 10*3/uL (4.8-10.8)
[2021-03-02 12:40] LABS: ALBUMIN 3.4 gm/dl (3.1-4.5); CREATININE 4.88 mg/dL (0.55-1.02); POTASSIUM 2.6 mmol/L (3.5-5.1); TOTAL PROTEIN 7.6 gm/dL (6.4-8.2)
[2021-03-02 12:45] LABS: TROPONIN I 0.055 ng/ml (<0.045)
[2021-03-02] MEDS ORDERED: NEURONTIN300 MG PO (16:24)
[2021-03-02] MEDS ORDERED: 8 HOUR650 MG PO (16:25)
[2021-03-02] MEDS ORDERED: HYDROCHLOROTHIA50 M1 PO (16:26)
[2021-03-02] MEDS ORDERED: MELOXICAM15 MG PO (16:27)
[2021-03-02] MEDS ORDERED: MONTELUKAST SOD10 MG PO (16:28)
[2021-03-02] MEDS ORDERED: ROSUVASTATIN CA10 MG PO (16:31)
[2021-03-02] MEDS ORDERED: TRAZODONE100 MG PO (16:31)
[2021-03-02] MEDS ORDERED: ASPIRIN ADULT L81 M2 PO (16:38)
[2021-03-02] MEDS ORDERED: VITAMIN B-121000 MC1 SL (16:38)
[2021-03-02] MEDS ORDERED: NATURE'S BLEND F1 MG PO (16:39)
[2021-03-02 18:29] LABS: CREATININE 4.49 mg/dL (0.55-1.02); POTASSIUM 2.8 mmol/L (3.5-5.1)
[2021-03-02 19:03] LABS: BILIRUBIN Negative (Negative); BLOOD 3+ (Negative); CLARITY Turbid (Clear); COLOR Red (Yellow); GLUCOSE Negative (Negative); KETONE Negative (Negative); LEUKO ESTERASE 3+ (Negative); NITRITE Negative (Negative); PH 7.5 (4.5-8.0); UROBILINOGEN 0.2 E.U./dl (0.0-1.0)
[2021-03-02 19:14] LABS: BACTERIA 4+; EPITHELIAL CELLS 21-30; RBC 16-20 rbc/hpf (0-2); WBC 51-100 wbc/hpf (0-5)
[2021-03-03 04:00] VITALS: BP 131/69
[2021-03-03 06:05] LABS: BASO % 0.4 % (0.0-1.0); EOS % 0.5 % (1.0-4.0); HEMATOCRIT 31.2 % (37.0-47.0); LYMPH # 0.6 10*3/uL (1.3-4.4); LYMPH % 7.5 % (27.0-41.0); MEAN CELL VOLUME 94.8 fl (81.0-99.0); MEAN CORPUSCULAR HGB 33.4 pg (27.0-31.0); MEAN CORPUSCULAR HGB CONC 35.3 g/dl (33.0-37.0); MEAN PLATELET VOLUME 12.8 fl (9.6-12.3); MONO # 0.6 10*3/uL (0.1-1.0); MONO % 7.6 % (3.0-9.0); NEUT # 6.7 10*3/uL (2.3-7.9); NEUT % 83.7 % (47.0-73.0); PLATELET COUNT AUTOMATED 242 10*3/uL (130-400); RED BLOOD COUNT 3.29 10*6/uL (4.10-5.10); RED CELL DISTRI WIDTH 13.5 % (0-14.5)
[2021-03-03 07:07] LABS: ALBUMIN 3.1 gm/dl (3.1-4.5); CREATININE 3.77 mg/dL (0.55-1.02); TOTAL PROTEIN 6.9 gm/dL (6.4-8.2)
[2021-03-03 07:08] LABS: FREE T4 0.91 ng/dl (0.76-1.46)
[2021-03-03 07:12] LABS: THYROID STIM HORMONE (HS) 1.51 uIU/ml (0.358-4.75)
[2021-03-03 08:00] VITALS: BP 113/71
[2021-03-03 10:47] LABS: VITAMIN D, 25-HYDROXY 36.4 ng/mL (30-100)
[2021-03-03 12:00] VITALS: BP 100/60
[2021-03-03 16:00] VITALS: BP 106/59
[2021-03-03 20:00] VITALS: BP 102/35
[2021-03-04] VITALS: BP 109/56
[2021-03-04 06:26] LABS: CREATININE 2.85 mg/dL (0.55-1.02); POTASSIUM 3.6 mmol/L (3.5-5.1)
[2021-03-04 06:32] LABS: BASO % 0.2 % (0.0-1.0); EOS # 0.1 10*3/uL (0.0-0.4); EOS % 1.2 % (1.0-4.0); HEMATOCRIT 31.5 % (37.0-47.0); LYMPH # 0.8 10*3/uL (1.3-4.4); LYMPH % 10.2 % (27.0-41.0); MEAN CORPUSCULAR HGB 33.6 pg (27.0-31.0); MEAN CORPUSCULAR HGB CONC 34.3 g/dl (33.0-37.0); MEAN PLATELET VOLUME 12.9 fl (9.6-12.3); MONO # 0.8 10*3/uL (0.1-1.0); MONO % 10.1 % (3.0-9.0); NEUT # 6.4 10*3/uL (2.3-7.9); NEUT % 77.9 % (47.0-73.0); PLATELET COUNT AUTOMATED 208 10*3/uL (130-400); RED BLOOD COUNT 3.21 10*6/uL (4.10-5.10); RED CELL DISTRI WIDTH 14.1 % (0-14.5); WHITE BLOOD COUNT 8.2 10*3/uL (4.8-10.8)
[2021-03-04 06:39] LABS: MEAN CELL VOLUME 98.1 fl (81.0-99.0)
[2021-03-04 08:00] VITALS: BP 98/47
[2021-03-04 12:00] VITALS: BP 98/48
[2021-03-04 16:00] VITALS: BP 97/51
[2021-03-04 20:00] VITALS: BP 107/41
[2021-03-05] VITALS: BP 137/56
[2021-03-05 06:18] LABS: CREATININE 1.97 mg/dL (0.55-1.02); POTASSIUM 3.4 mmol/L (3.5-5.1)
[2021-03-05 08:00] VITALS: BP 122/57
[2021-03-05 12:00] VITALS: BP 126/52
[2021-03-05 16:00] VITALS: BP 134/69
[2021-03-05 20:00] VITALS: BP 97/56
[2021-03-06] VITALS: BP 102/56
[2021-03-06 07:04] LABS: CREATININE 1.58 mg/dL (0.55-1.02)
[2021-03-06 07:14] LABS: POTASSIUM 4.5 mmol/L (3.5-5.1)
[2021-03-06 08:00] VITALS: BP 119/54
[2021-03-06 12:00] VITALS: BP 105/81
[2021-03-06 16:00] VITALS: BP 105/57
[2021-03-06 20:00] VITALS: BP 106/52
[2021-03-07] VITALS: BP 108/49
[2021-03-07 07:14] LABS: BASO % 0.4 % (0.0-1.0); EOS # 0.2 10*3/uL (0.0-0.4); HEMATOCRIT 29.1 % (37.0-47.0); LYMPH # 1.2 10*3/uL (1.3-4.4); LYMPH % 15.7 % (27.0-41.0); MEAN CELL VOLUME 106.6 fl (81.0-99.0); MEAN CORPUSCULAR HGB 34.4 pg (27.0-31.0); MEAN CORPUSCULAR HGB CONC 32.3 g/dl (33.0-37.0); MEAN PLATELET VOLUME 13.6 fl (9.6-12.3); MONO # 0.6 10*3/uL (0.1-1.0); MONO % 8.1 % (3.0-9.0); NEUT # 5.5 10*3/uL (2.3-7.9); NEUT % 72.4 % (47.0-73.0); PLATELET COUNT AUTOMATED 155 10*3/uL (130-400); RED BLOOD COUNT 2.73 10*6/uL (4.10-5.10); RED CELL DISTRI WIDTH 13.3 % (0-14.5); WHITE BLOOD COUNT 7.6 10*3/uL (4.8-10.8)
[2021-03-07 07:25] LABS: CREATININE 1.36 mg/dL (0.55-1.02); POTASSIUM 4.8 mmol/L (3.5-5.1)
[2021-03-07 08:00] VITALS: BP 103/42
[2021-03-07] MEDS ORDERED: METOPROLOL TART50 M1 PO (11:17)
[2021-03-07] MEDS ORDERED: CEFUROXIME AXE500 MG PO (11:17)
[2021-03-07] MEDS ORDERED: NEURONTIN300 MG PO (11:17)
[2021-03-07] MEDS ORDERED: PERCOCET 5-3251 EACH PO (11:17)
[2021-03-07 12:00] VITALS: BP 104/50; BP 122/56
== END 2021-03-07 14:35 | DRG 853 ==
LOC: ED 11:30 → EDHOLD 13:48 → 4E 13:48 → EDHOLD 17:51 → 4E 21:13
PROVIDERS: Family Medicine; Hospitalist; Student in an Organized Health Care Education/Training Program; ADMIT Emergency Medicine; ATTEND Emergency Medicine
PROC: 0JBM0ZZ Excision of Left Upper Leg Subcutaneous Tissue and Fascia, Open Approach (ICD-10-PCS; principal; 2021-03-05)
PROC: 0HBRXZZ Excision of Toe Nail, External Approach (ICD-10-PCS; 2021-03-06)
PROC: 0HBRXZZ Excision of Toe Nail, External Approach (ICD-10-PCS; 2021-03-06)
PROC: 0HBRXZZ Excision of Toe Nail, External Approach (ICD-10-PCS; 2021-03-06)
PROC: 0HBRXZZ Excision of Toe Nail, External Approach (ICD-10-PCS; 2021-03-06)
PROC: 0HBRXZZ Excision of Toe Nail, External Approach (ICD-10-PCS; 2021-03-06)
PROC: 0HBRXZZ Excision of Toe Nail, External Approach (ICD-10-PCS; 2021-03-06)
PROC: 0HBRXZZ Excision of Toe Nail, External Approach (ICD-10-PCS; 2021-03-06)
PROC: 0HBRXZZ Excision of Toe Nail, External Approach (ICD-10-PCS; 2021-03-06)
PROC: 0HBRXZZ Excision of Toe Nail, External Approach (ICD-10-PCS; 2021-03-06)
PROC: 0HBRXZZ Excision of Toe Nail, External Approach (ICD-10-PCS; 2021-03-06)
DX: A41.9 Sepsis, unspecified organism (principal); L89.323 Pressure ulcer of left buttock, stage 3; L89.313 Pressure ulcer of right buttock, stage 3; N17.0 Acute kidney failure with tubular necrosis; J96.01 Acute respiratory failure with hypoxia; M62.82 Rhabdomyolysis; E44.0 Moderate protein-calorie malnutrition; N39.0 Urinary tract infection, site not specified; E87.8 Other disorders of electrolyte and fluid balance, not elsewhere classified; R79.89 Other specified abnormal findings of blood chemistry; F41.1 Generalized anxiety disorder; I10 Essential (primary) hypertension; K21.9 Gastro-esophageal reflux disease without esophagitis; I48.91 Unspecified atrial fibrillation; E11.65 Type 2 diabetes mellitus with hyperglycemia; B35.1 Tinea unguium; E55.9 Vitamin D deficiency, unspecified; E87.6 Hypokalemia; L89.220 Pressure ulcer of left hip, unstageable; B96.20 Unspecified Escherichia coli [E. coli] as the cause of diseases classified elsewhere; R00.0 Tachycardia, unspecified; L89.150 Pressure ulcer of sacral region, unstageable; Z20.822 Contact with and (suspected) exposure to COVID-19; F03.90 Unspecified dementia, unspecified severity, without behavioral disturbance, psychotic disturbance, mood disturbance, and anxiety; Z88.8 Allergy status to other drugs, medicaments and biological substances; Z98.42 Cataract extraction status, left eye; Z98.41 Cataract extraction status, right eye; Z87.891 Personal history of nicotine dependence; Z81.1 Family history of alcohol abuse and dependence; Z82.5 Family history of asthma and other chronic lower respiratory diseases; Z82.49 Family history of ischemic heart disease and other diseases of the circulatory system; Z83.3 Family history of diabetes mellitus; Z79.899 Other long term (current) drug therapy; Z79.84 Long term (current) use of oral hypoglycemic drugs; Z68.21 Body mass index [BMI] 21.0-21.9, adult

== ENCOUNTER 2024-01-07 13:36 | Inpatient (IN) | payer MEDICARE, MEDICAID ==
[~2024-01-07] VITALS: Ht 167.6 cm; Wt 60.8 kg
[~2024-01-07 13:36] MED LIST changes: +8 HOUR650 MG PO; +ASPIRIN ADULT L81 M2 PO; +CEFUROXIME AXE500 MG PO; +CYMBALTA60 MG PO; +EXELON1 EACH T; +HYDROCHLOROTHIA50 M1 PO; +MELOXICAM15 MG PO; +METOPROLOL TART50 M1 PO; +MONTELUKAST SOD10 MG PO; +NATURE'S BLEND F1 MG PO; +NEURONTIN300 MG PO; +PERCOCET 5-3251 EACH PO; +TRAZODONE100 MG PO; +VITAMIN B-121000 MC1 SL
[2024-01-07 13:51] VITALS: BP 80/48
[2024-01-07] MEDS ORDERED: SODIUM CHLORIDE 0.9% 1,000 ML IV ONE (14:05)
[2024-01-07 14:24] LABS: BASO % 0.3 % (0.0-1.0); EOS # 0.1 10*3/uL (0.0-0.4); EOS % 1.6 % (1.0-4.0); HEMATOCRIT 27.2 % (37.0-47.0); LYMPH % 11.3 % (27.0-41.0); MEAN CELL VOLUME 104.6 fl (81.0-99.0); MEAN CORPUSCULAR HGB 31.5 pg (27.0-31.0); MEAN CORPUSCULAR HGB CONC 30.1 g/dl (33.0-37.0); MEAN PLATELET VOLUME 9.6 fl (9.6-12.3); MONO % 11.1 % (3.0-9.0); NEUT # 6.6 10*3/uL (2.3-7.9); NEUT % 75.4 % (47.0-73.0); PLATELET COUNT AUTOMATED 321 10*3/uL (130-400); RED CELL DISTRI WIDTH 13.3 % (0-14.5); WHITE BLOOD COUNT 8.8 10*3/uL (4.8-10.8)
[2024-01-07] MEDS ORDERED: IOHEXOL 300 MG/ML 100 ML VIAL IV ONE (14:30)
[2024-01-07 14:44] VITALS: BP 80/51
[2024-01-07 14:44] LABS: ALKALINE PHOSPHATASE 55 U/L (46-116); BUN 17 mg/dl (9-23); CHLORIDE 104 mmol/L (98-107); POTASSIUM 3.6 mmol/L (3.4-5.1); TOTAL PROTEIN 5.7 gm/dL (6.0-8.0)
[2024-01-07 14:45] LABS: SGPT/ALT < 7 U/L (5-49)
[2024-01-07] MEDS ORDERED: CALMOSEPTINE OI71 GM T (14:46)
[2024-01-07] MEDS ORDERED: VITAMIN D375 MCG PO (14:48)
[2024-01-07] MEDS ORDERED: CIPROFLOXACIN500 M4 PO (14:54)
[2024-01-07] MEDS ORDERED: DAKIN'S473 M1 T (14:56)
[2024-01-07] MEDS ORDERED: DEPAKOTE125 M1 PO (14:58)
[2024-01-07] MEDS ORDERED: NICODERM CQ1 EAC1 TD (15:00)
[2024-01-07] MEDS ORDERED: HYDROCODONE-AC1 EAC1 PO (15:02)
[2024-01-07] MEDS ORDERED: RIVASTIGMINE1 EAC1 T (15:02)
[2024-01-07 16:11] VITALS: BP 93/64
[2024-01-07] MEDS ORDERED: Ceftriaxone Sodium 1 GM/10 ML SYR IV ONE (16:45)
[2024-01-07] MEDS ORDERED: Vancomycin Hydrochloride 250 ML IV ONE (16:45)
[2024-01-07] MEDS ORDERED: ACETAMINOPHEN 325 MG TAB PO PRN (17:00)
[2024-01-07] MEDS ORDERED: BISACODYL 5 MG TAB PO PRN (17:00)
[2024-01-07] MEDS ORDERED: Ondansetron Hydrochloride 4 MG/2 ML VIAL IV PRN (17:00)
[2024-01-07] MEDS ORDERED: DEXTROSE 10 % IN WATER 250 ML IV PRN (17:25)
[2024-01-07 18:00] VITALS: BP 72/40
[2024-01-07 19:23] VITALS: BP 100/59
[2024-01-07] MEDS ORDERED: DEPAKOTE SPRIN125 MG PO (19:39)
[2024-01-07] MEDS ORDERED: Piperacillin Sodium/Tazobact 50 ML IV SCH (20:00)
[2024-01-07] MEDS ORDERED: INSULIN LISPRO 1 UNIT/0.01 ML SQ SCH (22:00)
[2024-01-07] MEDS ORDERED: DIVALPROEX SODIUM 125 MG CAP PO SCH (22:00)
[2024-01-07] MEDS ORDERED: DEXTROSE 50% 25 GM/50 ML SYR IV ONE (22:30)
[2024-01-07] MEDS ORDERED: DEXTROSE 10 % IN WATER 250 ML DEHP.FR.BG IV ONE (22:35)
[2024-01-07 23:03] VITALS: BP 96/52
[2024-01-08] MEDS ORDERED: IBUPROFEN600 MG PO (02:20)
[2024-01-08] MEDS ORDERED: OMEPRAZOLE 20 MG CAP PO SCH (06:00)
[2024-01-08] MEDS ORDERED: GABAPENTIN 300 MG CAP PO SCH (06:00)
[2024-01-08 06:21] LABS: BASO % 0.4 % (0.0-1.0); EOS # 0.2 10*3/uL (0.0-0.4); EOS % 1.9 % (1.0-4.0); HEMATOCRIT 29.7 % (37.0-47.0); LYMPH # 1.2 10*3/uL (1.3-4.4); LYMPH % 10.9 % (27.0-41.0); MEAN CELL VOLUME 104.6 fl (81.0-99.0); MEAN CORPUSCULAR HGB CONC 29.6 g/dl (33.0-37.0); MEAN PLATELET VOLUME 9.8 fl (9.6-12.3); MONO # 1.2 10*3/uL (0.1-1.0); MONO % 11.1 % (3.0-9.0); NEUT # 8.1 10*3/uL (2.3-7.9); NEUT % 75.4 % (47.0-73.0); PLATELET COUNT AUTOMATED 349 10*3/uL (130-400); RED BLOOD COUNT 2.84 10*6/uL (4.10-5.10); RED CELL DISTRI WIDTH 13.4 % (0-14.5); WHITE BLOOD COUNT 10.8 10*3/uL (4.8-10.8)
[2024-01-08] MEDS ORDERED: FOAM BANDAGE HEEL T ONE (06:44)
[2024-01-08] MEDS ORDERED: FOAM BANDAGE 1 EACH BANDAGE T ONE ×2 (06:44→23:26)
[2024-01-08] MEDS ORDERED: DEXTROSE 5% SALINE 0.45% 1,000 ML IV SCH (07:15)
[2024-01-08 07:23] LABS: ALKALINE PHOSPHATASE 58 U/L (46-116); BUN 14 mg/dl (9-23); CHLORIDE 107 mmol/L (98-107); POTASSIUM 3.7 mmol/L (3.4-5.1)
[2024-01-08 07:27] LABS: SGPT/ALT < 7 U/L (5-49)
[2024-01-08 08:00] VITALS: BP 96/61
[2024-01-08 09:31] LABS: VITAMIN D, 25-HYDROXY 41.2 ng/mL (30-100)
[2024-01-08] MEDS ORDERED: Enoxaparin Sodium 40 MG/0.4 ML SYR SC SCH (10:00)
[2024-01-08] MEDS ORDERED: Rosuvastatin Calcium 10 MG TABLET PO SCH (10:00)
[2024-01-08] MEDS ORDERED: ASPIRIN ENTERIC COATED 81 MG TAB PO SCH (10:00)
[2024-01-08] MEDS ORDERED: Nicotine 14 MG PATCH T SCH (10:00)
[2024-01-08] MEDS ORDERED: Duloxetine Hydrochloride 60 MG CAP PO SCH (10:00)
[2024-01-08] MEDS ORDERED: Vitamin D 1,000 IU TAB (25 MCG) PO SCH (10:00)
[2024-01-08] MEDS ORDERED: Rivastigmine Tartrate 9.5 MG/24 HR PATCH T SCH (10:00)
[2024-01-08 11:04] LABS: BILIRUBIN Negative (Negative); BLOOD Negative (Negative); CLARITY Clear (Clear); COLOR Yellow (Yellow); GLUCOSE Negative (Negative); KETONE Negative (Negative); LEUKO ESTERASE Negative (Negative); NITRITE Negative (Negative); PH 6.5 (4.5-8.0); SPECIFIC GRAVITY >= 1.030 (1.001-1.030)
[2024-01-08 11:20] LABS: RBC 0-2 rbc/hpf (0-2)
[2024-01-08] MEDS ORDERED: Sodium Hypochlorite 0.125% (1/4 STRENGTH DAKIN'S) 480 ML SOL T PRN (11:45)
[2024-01-08 12:00] VITALS: BP 141/63
[2024-01-08] MEDS ORDERED: Vancomycin Hydrochloride 1,000 MG in SODIUM CHLORIDE 0.9% 250 ML IV SCH (12:00)
[2024-01-08] MEDS ORDERED: Acetaminophen/Hydrocodone 5 MG/325 MG TABLET PO ONE (14:40)
[2024-01-08 16:00] VITALS: BP 125/92
[2024-01-08 18:00] VITALS: BP 125/92
[2024-01-08] MEDS ORDERED: Montelukast Sodium 10 MG TAB PO SCH (18:00)
[2024-01-08] MEDS ORDERED: Piperacillin Sodium/Tazobact 4.5 GM in SODIUM CHLORIDE 0.9% 100 ML IV SCH (18:00)
[2024-01-08 20:00] VITALS: BP 159/92
[2024-01-08] MEDS ORDERED: Sodium Hypochlorite 0.125% (1/4 STRENGTH DAKIN'S) 480 ML SOL T SCH (22:00)
[2024-01-08 23:35] VITALS: BP 90/62
[2024-01-09] VITALS (7 sets, daily range): BP systolic 87–145; BP diastolic 50–65
[2024-01-09] MEDS ORDERED: DEXTROSE IV SCH ×2 (00:05→02:50)
[2024-01-09] MEDS ORDERED: [UNRECOGNIZED DRUG - OTHER] IV SCH ×2 (00:05→02:50)
[2024-01-09 06:16] LABS: ALKALINE PHOSPHATASE 54 U/L (46-116); BUN 9 mg/dl (9-23); CHLORIDE 105 mmol/L (98-107); TOTAL PROTEIN 5.5 gm/dL (6.0-8.0)
[2024-01-09 06:19] LABS: SGPT/ALT < 7 U/L (5-49)
[2024-01-09 06:31] LABS: BASO % 0.3 % (0.0-1.0); EOS # 0.3 10*3/uL (0.0-0.4); EOS % 3.4 % (1.0-4.0); HEMATOCRIT 25.9 % (37.0-47.0); LYMPH # 1.4 10*3/uL (1.3-4.4); LYMPH % 15.4 % (27.0-41.0); MEAN CORPUSCULAR HGB 31.5 pg (27.0-31.0); MEAN CORPUSCULAR HGB CONC 30.9 g/dl (33.0-37.0); MEAN PLATELET VOLUME 10.1 fl (9.6-12.3); MONO # 1.1 10*3/uL (0.1-1.0); MONO % 11.9 % (3.0-9.0); NEUT # 6.3 10*3/uL (2.3-7.9); NEUT % 68.6 % (47.0-73.0); PLATELET COUNT AUTOMATED 298 10*3/uL (130-400); RED BLOOD COUNT 2.54 10*6/uL (4.10-5.10); RED CELL DISTRI WIDTH 13.4 % (0-14.5); WHITE BLOOD COUNT 9.1 10*3/uL (4.8-10.8)
[2024-01-09] MEDS ORDERED: Acetaminophen/Hydrocodone 5 MG/325 MG TABLET PO PRN (10:35)
[2024-01-09] MEDS ORDERED: fentaNYL CITRATE 100 MCG/2 ML VIAL IV PRN (10:35)
[2024-01-09] MEDS ORDERED: DEXTROSE 5% SALINE 0.9% 1,000 ML IV ONE (13:00)
[2024-01-09] MEDS ORDERED: POTASSIUM CHLORIDE 20 MEQ TAB PO ONE (14:40)
[2024-01-10] VITALS: BP 112/71
[2024-01-10] MEDS ORDERED: FOAM BANDAGE 5X5 T ONE (02:47)
[2024-01-10 06:57] LABS: BUN 8 mg/dl (9-23); CHLORIDE 105 mmol/L (98-107); POTASSIUM 3.3 mmol/L (3.4-5.1)
[2024-01-10] MEDS ORDERED: POTASSIUM CHLORIDE 20 MEQ TAB PO ONE (07:20)
[2024-01-10 08:00] VITALS: BP 107/77
[2024-01-10] MEDS ORDERED: DEXTROSE 5% SALINE 0.9% 1,000 ML IV ONE (11:25)
[2024-01-10 12:00] VITALS: BP 82/58
[2024-01-10] MEDS ORDERED: INSULIN LISPRO 1 UNIT/0.01 ML SQ SCH (12:00)
[2024-01-10 16:00] VITALS: BP 92/60
[2024-01-10 20:33] VITALS: BP 83/70
[2024-01-11 00:07] VITALS: BP 97/64
[2024-01-11 07:27] LABS: BASO % 0.5 % (0.0-1.0); EOS # 0.2 10*3/uL (0.0-0.4); EOS % 3.7 % (1.0-4.0); HEMATOCRIT 28.1 % (37.0-47.0); LYMPH # 1.1 10*3/uL (1.3-4.4); MEAN CELL VOLUME 101.1 fl (81.0-99.0); MEAN CORPUSCULAR HGB 30.9 pg (27.0-31.0); MEAN CORPUSCULAR HGB CONC 30.6 g/dl (33.0-37.0); MEAN PLATELET VOLUME 9.6 fl (9.6-12.3); MONO # 0.6 10*3/uL (0.1-1.0); MONO % 9.3 % (3.0-9.0); NEUT # 4.3 10*3/uL (2.3-7.9); NEUT % 68.2 % (47.0-73.0); PLATELET COUNT AUTOMATED 317 10*3/uL (130-400); RED BLOOD COUNT 2.78 10*6/uL (4.10-5.10); RED CELL DISTRI WIDTH 13.5 % (0-14.5); WHITE BLOOD COUNT 6.2 10*3/uL (4.8-10.8)
[2024-01-11 07:49] LABS: BUN 7 mg/dl (9-23); CHLORIDE 108 mmol/L (98-107); POTASSIUM 3.4 mmol/L (3.4-5.1)
[2024-01-11 08:00] VITALS: BP 110/75
[2024-01-11] MEDS ORDERED: PERCOCET 5-3251 EACH PO (13:15)
[2024-01-11 13:27] VITALS: BP 105/82
[2024-01-11 16:00] VITALS: BP 108/78
== END 2024-01-11 17:38 | DRG 637 ==
LOC: ED 13:36 → 4E 16:54 → EDHOLD 16:54 → 4E 21:00
PROVIDERS: Internal Medicine; Nurse Practitioner Family; Student in an Organized Health Care Education/Training Program; ADMIT Family Medicine; ATTEND Family Medicine
DX: E11.69 Type 2 diabetes mellitus with other specified complication (principal); E43 Unspecified severe protein-calorie malnutrition; L89.154 Pressure ulcer of sacral region, stage 4; M46.28 Osteomyelitis of vertebra, sacral and sacrococcygeal region; E87.1 Hypo-osmolality and hyponatremia; Z16.12 Extended spectrum beta lactamase (ESBL) resistance; E83.52 Hypercalcemia; D53.9 Nutritional anemia, unspecified; K56.41 Fecal impaction; K80.20 Calculus of gallbladder without cholecystitis without obstruction; Z66 Do not resuscitate; I48.91 Unspecified atrial fibrillation; I10 Essential (primary) hypertension; F41.1 Generalized anxiety disorder; E78.5 Hyperlipidemia, unspecified; A49.8 Other bacterial infections of unspecified site; K80.80 Other cholelithiasis without obstruction; I95.9 Hypotension, unspecified; S90.31XA Contusion of right foot, initial encounter; S90.111A Contusion of right great toe without damage to nail, initial encounter; S30.1XXA Contusion of abdominal wall, initial encounter; E16.2 Hypoglycemia, unspecified; Z51.5 Encounter for palliative care; Z68.21 Body mass index [BMI] 21.0-21.9, adult; X58.XXXA Exposure to other specified factors, initial encounter; Y93.89 Activity, other specified; Y92.89 Other specified places as the place of occurrence of the external cause; Y99.8 Other external cause status